=== PATIENT | male | born 1965 | race Caucasian/White ===

== ENCOUNTER 2017-08-27 12:28 | Emergency (ER) | payer MEDICARE, MEDICAID ==
[~2017-08-27] VITALS: Ht 177.8 cm; Wt 63.6 kg
[~2017-08-27 12:28] MED LIST: ACYC400T5 PO; AMOX500T2 PO; ARIP30TA PO; MULT1TAB PO; NEOM1PAC2 TP; PIOG15TA6 PO; TENO300 PO; [UNRECOGNIZED DRUG - OTHER] PO
[2017-08-27] MEDS ORDERED: RISP2 PO (12:47)
[2017-08-27 12:48] VITALS: BP 132/75
== END 2017-08-27 15:45 | disposition home or self-care (01) ==
LOC: EMS 12:30
DX: M25.552 Pain in left hip (principal)
CPT/HCPCS: 73503; 99284